=== PATIENT | female | born 1960 | race Caucasian/White ===

== ENCOUNTER 2022-02-03 08:02 | Outpatient (CLI) | payer MEDICARE, OTHER, SELFPAY | END 2022-02-03 08:03 | disposition home or self-care (01) | LOC: INJ CL 08:06 | PROVIDERS: PCP Family Medicine; Visit Provider Family Medicine | DX: M16.11 Unilateral primary osteoarthritis, right hip (principal); M25.551 Pain in right hip | CPT/HCPCS: 20610; 77002; J0702; Q9966 ==